=== PATIENT | male | born 1985 | race Caucasian/White ===

== ENCOUNTER 2018-09-29 00:14 | Emergency (ER) | payer OTHER ==
[2018-09-29 01:02] VITALS: BP 135/70; PULSE 88; TEMP 98.2; BMI 30.7
--- NOTE | 2018-09-29 01:55 | PDOC ---
History of Present Illness - General Chief Complaint: Head/Neck problem Stated Complaint: HEAD INJURY History Source: Patient Exam Limitations: No Limitations Past History - Past Medical History Allergies/Adverse Reactions: Allergies Allergy/AdvReac Type Severity Reaction Status Date / Time No Known Allergies Allergy Verified 09/29/18 00:57 Home Medications: Ambulatory Orders Lamotrigine [Lamictal] 200 mg PO HS 09/29/18 Quetiapine Fumarate [Seroquel -] 400 mg PO HS 09/29/18 - Suicide/Smoking/Psychosocial Hx Smoking History: Never smoked Have you smoked in the past 12 months: No Information on smoking cessation initiated: No Hx Alcohol Use: No Drug/Substance Use Hx: No *Physical Exam - Vital Signs Last Vital Signs Temp Pulse Resp BP Pulse Ox 98.2 F 88 16 135/70 97 09/29/18 00:14 09/29/18 00:14 09/29/18 00:14 09/29/18 00:14 09/29/18 00:14 *DC/Admit/Observation/Transfer Diagnosis at time of Disposition: Head injury Qualifiers: Encounter type: initial encounter Qualified Code(s): S09.90XA - Unspecified injury of head, initial encounter - Discharge Dispostion Disposition: HOME Condition at time of disposition: Fair Decision to Admit order: No - Referrals Referrals: Luke Tucker MD [Staff Physician] - - Patient Instructions Printed Discharge Instructions: DI for Closed Head Injury, DI for Concussion Additional Instructions: you were seen for the evaluation of your head and forearm injury. the studies show that you do not have a fracture, head bleed, and fracture of the arm. Please for the next few days have a progressive increase in mentation during recovery. do not watch tv for 5 days. please follow up with your primary medical doctor within 1 week after discharge for follow up care and management. please return to the emergency department if you have worsening symptoms or new concerning symptoms such as confusion, nausea, vomiting, and visual change. - Post Discharge Activity Forms/Work/School Notes: Back to Work
[2018-09-29] MEDS ORDERED: IBUPROFEN 600 MG TABLET (FP) PO ONE ×2 (02:03→02:07)
--- NOTE | 2018-09-29 03:02 | PDOC ---
Documentation entered by Connie Segovia SCRIBE, acting as scribe for Cordelia Willson MD. Cordelia Willson MD: This documentation has been prepared by the tatyanaibe, Connie Segovia SCRIBE, under my direction and personally reviewed by me in its entirety. I confirm that the documentation accurately reflects all work, treatment, procedures, and medical decision making performed by me. Attending Attestation - Resident Resident Name: Calvin Rapp - ED Attending Attestation I have performed the following: I have examined & evaluated the patient, The case was reviewed & discussed with the resident, I agree w/resident's findings & plan - HPI HPI: 09/29/18 02:01 The patient is a year old male with past medical history significant for bipolar disorder presents to the emergency department with a headache since 5: 00 pm today. The patient reports he was at the gym, working out. The patient reports he was laying down on the bench, when he sat down, he hit his head on a 40 lbs bar. The patient reports he felt lightheaded immediately after and felt a mental fog. The patient reports additional concern of an old injury to the arm. - Physicial Exam PE: 09/29/18 02:11 GENERAL: Awake, alert, and fully oriented, in no acute distress HEAD: no swelling of the occipital, no tenderness of the neck with palpation. No signs of trauma EYES: Pupils dilated bilaterally, reactive to light. sclera anicteric, conjunctiva clear ENT: Auricles normal inspection, hearing grossly normal, nares patent. Moist mucosa NECK: Normal ROM, supple, no lymphadenopathy, JVD, or masses LUNGS: Breath sounds equal, clear to auscultation bilaterally. No wheezes, and no crackles HEART: Regular rate and rhythm, normal S1 and S2, no murmurs, rubs or gallops ABDOMEN: Soft, nontender, normoactive bowel sounds. No guarding, no rebound. No masses EXTREMITIES: +old self inflicted cuts to the forearm, left arm he has resolving hematoma, tenderness over the forearm, able to supinate and pronate, good pulses, no swelling of the extremities, sensory motor intact. NEUROLOGICAL: Moves all extremities. Normal speech, normal gait SKIN: Warm, Dry, normal turgor, no rashes or lesions noted. - Medical Decision Making 09/29/18 03:01 Left forearm XRAY is normal. No fractures and no deformities and no soft tissue swelling 09/29/18 04:26 Pt's head and cspine CT scan are normal.
== END 2018-09-29 04:10 | disposition home or self-care (01) ==
LOC: JER 00:14
DX: S09.8XXA Other specified injuries of head, initial encounter (principal); W22.8XXA Striking against or struck by other objects, initial encounter; Y93.B3 Activity, free weights; Y92.39 Other specified sports and athletic area as the place of occurrence of the external cause; Y99.8 Other external cause status
CPT/HCPCS: 70450-TC; 72125-TC; 73090-TC-LT-FY; 99281-25

== ENCOUNTER 2018-11-30 19:10 | Emergency (ER) | payer OTHER ==
[2018-11-30 19:30] VITALS: BP 91/69; PULSE 89; TEMP 98.8; BMI 30.8
--- NOTE | 2018-11-30 20:05 | PDOC ---
History of Present Illness - General Chief Complaint: Pain, Acute Stated Complaint: SHOULDER PROBLEM Time Seen by Provider: 11/30/18 19:56 History Source: Patient Exam Limitations: Clinical Condition - History of Present Illness Initial Comments: 11/30/18 20:07 Patient with no significant past medical history present with complaint of 4 weeks history of persistent left shoulder pain from which lifting. Patient report taking a break from weight lifting 3 weeks ago and pain improved but started again after going back to weeks lifting. Patient reported taking Motrin for symptoms persist. Denies weakness to left upper extremity Timing/Duration: other (4 weeks) Past History - Past Medical History Allergies/Adverse Reactions: Allergies Allergy/AdvReac Type Severity Reaction Status Date / Time No Known Allergies Allergy Verified 09/29/18 00:57 Home Medications: Ambulatory Orders Lamotrigine [Lamictal] 200 mg PO HS 09/29/18 Quetiapine Fumarate [Seroquel -] 400 mg PO HS 09/29/18 Methocarbamol [Robaxin -] 500 mg PO BID PRN #14 tablet 11/30/18 Naproxen 500 mg PO BID PRN #20 tablet 11/30/18 - Suicide/Smoking/Psychosocial Hx Smoking History: Unknown if ever smoked Have you smoked in the past 12 months: No Information on smoking cessation initiated: No Hx Alcohol Use: No Drug/Substance Use Hx: No Review of Systems - Review of Systems Able to Perform ROS?: Yes Is the patient limited [place] proficient: No Constitutional: No: Loss of Appetite, Weakness HEENTM: No: Symptoms Reported Respiratory: No: Symptoms reported Cardiac (ROS): No: Symptoms Reported ABD/GI: No: Symptoms Reported Musculoskeletal: Yes: Symptoms Reported, See HPI, Joint Pain (left shoulder), Muscle Pain Neurological: No: Numbness, Paresthesia, Tingling, Weakness All Other Systems: Reviewed and Negative *Physical Exam - Vital Signs Last Vital Signs Temp Pulse Resp BP Pulse Ox 98.8 F 89 20 91/69 96 11/30/18 19:26 11/30/18 19:26 11/30/18 19:26 11/30/18 19:26 11/30/18 19:26 - Physical Exam Comments: 11/30/18 20:09 GENERAL: Well developed, well nourished. Awake and alert. No acute distress. CARDIOVASCULAR: Regular rate and rhythm. No murmurs, rubs, or gallops. PULMONARY: No evidence of respiratory distress. MUSCULOSKELETAL : mild tenderness over left AC joint and topical of left shoulder. Free range of motion of left shoulder and upper extremity. 5 out of 5 strength to left upper extremity.. No bony deformities SKIN: Warm and dry. Normal capillary refill. No bruising to left shoulder NEUROLOGICAL: Alert, awake, appropriate. No motor deficits in the lower extremities. Gait is normal without ataxia. PSYCHIATRIC: Cooperative. Good eye contact. Appropriate mood and affect. General Appearance: Yes: Nourished, Appropriately Dressed. No: Apparent Distress Medical Decision Making - Medical Decision Making 11/30/18 20:08 Patient with no significant past medical history present with complaint of 4 weeks history of persistent left shoulder pain from which lifting. Patient report taking a break from weight lifting 3 weeks ago and pain improved but started again after going back to weeks lifting. Patient reported taking Motrin for symptoms persist. Denies weakness to left upper extremity Exam significant for mild tenderness over left AC joint and topical of left shoulder. Free range of motion of left shoulder and upper extremity. 5 out of 5 strength to left upper extremity. Patient stable for discharge on naproxen when necessary for pain and Robaxin muscle relaxer with orthopedist follow-up *DC/Admit/Observation/Transfer Diagnosis at time of Disposition: Strain of left shoulder Qualifiers: Encounter type: initial encounter Qualified Code(s): S46.912A - Strain of unspecified muscle, fascia and tendon at shoulder and upper arm level, left arm , initial encounter - Discharge Dispostion Disposition: HOME Condition at time of disposition: Stable Decision to Admit order: No - Prescriptions Prescriptions: Methocarbamol [Robaxin -] 500 mg PO BID PRN #14 tablet PRN Reason: shoulder pain Naproxen 500 mg PO BID PRN #20 tablet PRN Reason: pain - Referrals Referrals: Maximo Messina DO [Staff Physician] - - Patient Instructions Printed Discharge Instructions: Shoulder Sprain Additional Instructions: Take medication as prescribed as needed for shoulder pain. Apply hot compresses to shoulder 2-3 times a day as needed for pain. Follow-up referred orthopedics for reassessment and possible MRI - Post Discharge Activity
== END 2018-11-30 20:16 | disposition home or self-care (01) ==
LOC: JERFT 19:10 → JER 19:10 → JERFT 20:16
DX: S46.812A Strain of other muscles, fascia and tendons at shoulder and upper arm level, left arm, initial encounter (principal); X50.3XXA Overexertion from repetitive movements, initial encounter; Y93.B3 Activity, free weights; Y92.89 Other specified places as the place of occurrence of the external cause; Y99.8 Other external cause status
CPT/HCPCS: 99281-25

== ENCOUNTER 2019-01-18 19:17 | Emergency (ER) | payer OTHER | END 2019-01-18 20:33 | disposition home or self-care (01) | LOC: JERFT 19:17 ==

== ENCOUNTER 2020-02-26 03:04 | Emergency (ER) | payer OTHER ==
--- NOTE | 2020-02-26 03:14 | PDOC ---
Attending Attestation - Resident Resident Name: ElisePrasanth gangrabiel - ED Attending Attestation I have performed the following: I have examined & evaluated the patient, The case was reviewed & discussed with the resident, I agree w/resident's findings & plan - HPI HPI: 02/26/20 03:51 see resident hpi - Physicial Exam PE: 02/26/20 03:52 see resident exam - Medical Decision Making 02/26/20 03:52 34-year-old male requesting COVID testing after possible exposure mild cough development Chest x-ray shows no acute pulmonary disease EKG is unremarkable Mild increase in expiratory phase Will DC with [facility] with outpatient primary care follow-up Discharge - Discharge Information Problems reviewed: Yes Clinical Impression/Diagnosis: Cough - Follow up/Referral - Patient Discharge Instructions - Post Discharge Activity
[2020-02-26 03:23] VITALS: PULSE 92; TEMP 98.9; BMI 32.3
--- OUTSIDE RECORDS SUMMARY | 2020-02-26 03:26 | XMS ---
:1985 Author Organization [facility] Support Name Relationship Address Phone UE Unavailable Unavailable Unavailable KESHA CARPENTER MOTHER [address] [place] [address] KESHA carpenter Unavailable Unavailable Unavailable [place], [place] Re-disclosure Warning The records that you are about to access may contain information from federally- assisted alcohol or drug abuse programs. If such information is present, then the following federally mandated warning applies: This information has been disclosed to you from records protected by federal confidentiality rules (42 CFR part 2). The federal rules prohibit you from making any further disclosure of this information unless further disclosure is expressly permitted by the written consent of the person to whom it pertains or as otherwise permitted by 42 CFR part 2. A general authorization for the release of medical or other information is NOT sufficient for this purpose. The Federal rules restrict any use of the information to criminally investigate or prosecute any alcohol or drug abuse patient.The records that you are about to access may contain highly sensitive health information, the redisclosure of which is protected by Article 27-F of the [facility] Public Health law. If you continue you may haveaccess to information: Regarding HIV / AIDS; Provided by facilities licensed or operated by the [facility] Office of Mental Health; or Provided by the [facility] Office for People With Developmental Disabilities. If such information is present, then the following [facility] mandated warning applies: This information has been disclosed to you from confidential records which are protected by state law. State law prohibits you from making any further disclosure of this information without the specific written consent of the person to whom it pertains, or as otherwise permitted by law. Any unauthorized further disclosure in violation of state law may result in a fine or correction sentence or both. A general authorization for the release of medical or other information is NOT sufficient authorization for further disclosure. Allergies and Adverse Reactions Type Description Substance Reaction Status Data Source(s ) Propensity to cats No known allergies sneeZING Active eCW 3 ([facility] adverse reactions (situation) Health Care) Propensity to cats No known allergies sneeZING Active eCW 3 ([facility] adverse reactions (situation) Health Care) Propensity to cats No known allergies sneeZING Active eCW 3 ([facility] adverse reactions (situation) Health Care) Encounters Encounter Providers Location Date Indications Data Source(s ) Outpatient [facility] 02/17/2019 eCW3 ([facility] on [facility] A28 12:00:00 AM Health are) EDT - 02/17/2019 12:00:00 AM EDT Outpatient [facility] 08/22/2018 eCW3 ([facility] on [facility] A28 12:00:00 AM Health are) EDT - 08/22/2018 12:00:00 AM EDT Outpatient [facility] 07/15/2018 eCW3 ([facility] on [facility] A28 12:00:00 AM Health are) EST - 07/15/2018 12:00:00 AM EST Unlisted 06/12/2018 NETSMART (Ment al evaluation and 05:00:00 AM Health As sociation management service [facility]) Unlisted 05/20/2018 NETSMART (Ment al evaluation and 05:00:00 AM Health As sociation management service [facility]) 06/06/2018 05:00:00 AM EST Immunizations Vaccine Date Status Description Data Source(s) MMR 11/28/2012 05:35:44 completed eCW3 ([facility] Care) meningococcal MCV4P completed eCW3 ([facility]) Medications Medication Brand Start Product Dose Route Administrative [facility] Indications Reaction Description Data Name Date Form Instructions Instructions Source(s) quetiapine SEROqu .0 Oral active NET SMART 300 MG Oral el 2019 Table (Mental Tablet 04:00: t Health [Seroquel] 00 AM Associat io EDT n of [facility]) vilazodone Viibry .0 Oral active NET SMART hydrochlori d 2019 Table (Mental de 10 MG 04:00: t Health Oral Tablet 00 AM Associa meet [Viibryd] EDT n of Philipp r) quetiapine SEROqu .0 Oral active NET SMART 400 MG Oral el 2020 Table (Mental Tablet 04:00: t Health [Seroquel] 00 AM Associat io EDT n of Philipp r) vilazodone Viibry .0 Oral active NET SMART hydrochlori d 2020 Table (Mental de 20 MG 04:00: t Health Oral Tablet 00 AM Associa meet [Viibryd] EDT n of [facility]) lamotrigine lamoTR .0 Oral active NE TSMART 100 MG Oral Igine 2020 Table (Menta l Tablet 04:00: t Health 00 AM Associatio EDT n of [facility]) vilazodone Viibry .0 Oral active NET SMART hydrochlori d 2020 Table (Mental de 20 MG 04:00: t Health Oral Tablet 00 AM Associa meet [Viibryd] EDT n of [facility]) quetiapine SEROqu .0 Oral active NET SMART 400 MG Oral el 2020 Table (Mental Tablet 04:00: t Health [Seroquel] 00 AM Associat io EDT n of [facility]) lamotrigine lamoTR .0 Oral active NE TSMART 50 MG Igine 2020 Table (Mental Disintegrat 04:00: t-ODT Healt h ing Oral 00 AM Associatio Tablet EDT n of hPilipp smith) quetiapine SEROqu .0 Oral active NET SMART 50 MG Oral el 2020 Table (Mental Tablet 04:00: t Health [Seroquel] 00 AM Associat io EDT n of Philipp r) vilazodone Viibry .0 Oral active NET SMART hydrochlori d 2020 Table (Mental de 20 MG 04:00: t Health Oral Tablet 00 AM Associa meet [Viibryd] EDT n of [facility]) quetiapine SEROqu .0 Oral active NET SMART 400 MG Oral el 2020 Table (Mental Tablet 04:00: t Health [Seroquel] 00 AM Associat io EDT n of [facility]) quetiapine SEROqu .0 Oral active NET SMART 400 MG Oral el 2020 Table (Mental Tablet 04:00: t Health [Seroquel] 00 AM Associat io EDT n of Philipp r) vilazodone Viibry .0 Oral active NET SMART hydrochlori d 2020 Table (Mental de 20 MG 04:00: t Health Oral Tablet 00 AM Associa meet [Viibryd] EDT n of [facility] r) vilazodone Viibry .0 Oral active NET SMART hydrochlori d 2020 Table (Mental de 20 MG 04:00: t Health Oral Tablet 00 AM Associa meet [Viibryd] EDT n of Philipp r) quetiapine SEROqu .0 Oral active NET SMART 400 MG Oral el 2020 Table (Mental Tablet 04:00: t Health [Seroquel] 00 AM Associat io EDT n of [facility] r) quetiapine SEROqu .0 Oral active NET SMART 400 MG Oral el 2020 Table (Mental Tablet 04:00: t Health [Seroquel] 00 AM Associat io EDT n of [facility]) vilazodone Viibry .0 Oral active NET SMART hydrochlori d 2020 Table (Mental de 20 MG 04:00: t Health Oral Tablet 00 AM Associa meet [Viibryd] EDT n of [facility]) lamotrigine lamoTR .0 Oral active NE TSMART 50 MG Igine 2019 Table (Mental Disintegrat 04:00: t-ODT Healt h ing Oral 00 AM Associatio Tablet EDT n of Philipp r) vilazodone Viibry .0 Oral active NET SMART hydrochlori d 2020 Table (Mental de 20 MG 04:00: t Health Oral Tablet 00 AM Associa meet [Viibryd] EDT n of Philipp r) quetiapine SEROqu .0 Oral active NET SMART 400 MG Oral el 2020 Table (Mental Tablet 04:00: t Health [Seroquel] 00 AM Associat io EDT n of [place] [facility]) vilazodone Viibry .0 Oral active NET SMART hydrochlori d 2020 Table (Mental de 20 MG 04:00: t Health Oral Tablet 00 AM Associa meet [Viibryd] EDT n of Philipp r) quetiapine SEROqu .0 Oral active NET SMART 400 MG Oral el 2020 Table (Mental Tablet 04:00: t Health [Seroquel] 00 AM Associat io EDT n of [facility] r) vilazodone Viibry .0 Oral active NET SMART hydrochlori d 2020 Table (Mental de 20 MG 04:00: t Health Oral Tablet 00 AM Associa meet [Viibryd] EDT n of Philipp r) quetiapine SEROqu .0 Oral active NET SMART 400 MG Oral el 2020 Table (Mental Tablet 04:00: t Health [Seroquel] 00 AM Associat io EDT n of [facility] r) quetiapine SEROqu .0 Oral active NET SMART 400 MG Oral el 2020 Table (Mental Tablet 04:00: t Health [Seroquel] 00 AM Associat io EDT n of [facility] r) vilazodone Viibry .0 Oral active NET SMART hydrochlori d 2020 Table (Mental de 20 MG 04:00: t Health Oral Tablet 00 AM Associa meet [Viibryd] EDT n of [facility] r) quetiapine SEROqu .0 Oral active NET SMART 400 MG Oral el 2020 Table (Mental Tablet 04:00: t Health [Seroquel] 00 AM Associat io EDT n of [facility] r) Escitalopra Lexapr .0 Oral active NE TSMART m 10 MG o 2020 Table (Mental Oral Tablet 04:00: t Health [Lexapro] 00 AM Associati o EDT n of [facility] r) vilazodone Viibry 1.0 Oral active NET SMART hydrochlori d 2020 Table (Mental de 10 MG 04:00: t Health Oral Tablet 00 AM Associa meet [Viibryd] EDT n of [facility] r) quetiapine SEROqu .0 Oral active NET SMART 400 MG Oral el 2020 Table (Mental Tablet 04:00: t Health [Seroquel] 00 AM Associat io EDT n of [facility] r) Escitalopra Lexapr .0 Oral active NE TSMART m 5 MG Oral o 2020 Table (Mental Tablet 04:00: t Health [Lexapro] 00 AM Associati o EDT n of Philipp r) quetiapine SEROqu .0 Oral active NET SMART 400 MG Oral el 2020 Table (Mental Tablet 04:00: t Health [Seroquel] 00 AM Associat io EDT n of [place] [facility]) vilazodone Viibry .0 Oral active NET SMART hydrochlori d 2020 Table (Mental de 20 MG 04:00: t Health Oral Tablet 00 AM Associa meet [Viibryd] EDT n of [place] [facility]) vilazodone Viibry .0 Oral active NET SMART hydrochlori d 2020 Table (Mental de 20 MG 04:00: t Health Oral Tablet 00 AM Associa meet [Viibryd] EDT n of [place] sm[facility]) quetiapine SEROqu .0 Oral active NET SMART 400 MG Oral el 2020 Table (Mental Tablet 04:00: t Health [Seroquel] 00 AM Associat io EDT n of [facility] r) vilazodone Viibry .0 Oral active NET SMART hydrochlori d 2020 Table (Mental de 20 MG 04:00: t Health Oral Tablet 00 AM Associa meet [Viibryd] EDT n of Philipp r) quetiapine SEROqu .0 Oral active NET SMART 400 MG Oral el 2020 Table (Mental Tablet 04:00: t Health [Seroquel] 00 AM Associat io EDT n of [facility] r) vilazodone Viibry .0 Oral active NET SMART hydrochlori d 2020 Table (Mental de 20 MG 04:00: t Health Oral Tablet 00 AM Associa meet [Viibryd] EDT n of [place] r) quetiapine SEROqu .0 Oral active NET SMART 400 MG Oral el 2020 Table (Mental Tablet 04:00: t Health [Seroquel] 00 AM Associat io EDT n of [place] [facility]) vilazodone Viibry .0 Oral active NET SMART hydrochlori d 2020 Table (Mental de 20 MG 04:00: t Health Oral Tablet 00 AM Associa meet [Viibryd] EDT n of [place] r) quetiapine SEROqu .0 Oral active NET SMART 400 MG Oral el 2020 Table (Mental Tablet 04:00: t Health [Seroquel] 00 AM Associat io EDT n of [place] r) quetiapine SEROqu .0 Oral active NET SMART 400 MG Oral el 2020 Table (Mental Tablet 04:00: t Health [Seroquel] 00 AM Associat io EDT n of [place] r) vilazodone Viibry .0 Oral active NET SMART hydrochlori d 2020 Table (Mental de 20 MG 04:00: t Health Oral Tablet 00 AM Associa meet EDT n of [place] r) vilazodone Viibry .0 Oral active NET SMART hydrochlori d 2020 Table (Mental de 20 MG 04:00: t Health Oral Tablet 00 AM Associa meet EDT n of [place] r) vilazodone Viibry .0 Oral active NET SMART hydrochlori d 2020 Table (Mental de 10 MG 05:00: t Health Oral Tablet 00 AM Associa meet [Viibryd] EST n of Philipp r) quetiapine SEROqu .0 Oral active NET SMART 300 MG Oral el 2020 Table (Mental Tablet 05:00: t Health [Seroquel] 00 AM Associat io EST n of [place] r) quetiapine QUEtia .0 Oral active NET SMART 400 MG Oral pine 2020 Table (Mental Tablet Fumara 05:00: t Health te 00 AM Associatio EST n of Philipp r) quetiapine SEROqu .0 Oral active NET SMART 200 MG Oral el 2020 Table (Mental Tablet 05:00: t Health [Seroquel] 00 AM Associat io EST n of [facility] r) lamotrigine lamoTR .0 Oral active NE TSMART 50 MG Igine 2019 Table (Mental Disintegrat 05:00: t-ODT Healt h ing Oral 00 AM Associatio Tablet EST n of [facility] r) quetiapine SEROqu .0 Oral active NET SMART 200 MG Oral el 2019 Table (Mental Tablet 05:00: t Health [Seroquel] 00 AM Associat io EST n of [place] r) quetiapine SEROqu .0 Oral active NET SMART 100 MG Oral el 2019 Table (Mental Tablet 05:00: t Health [Seroquel] 00 AM Associat io EST n of Philipp r) 24 HR lamoTR .0 Oral active NETSMART lamotrigine Igine 2019 Table (Menta l 50 MG 05:00: t Health Extended 00 AM Associatio Release EST n of Oral Tablet Sondra adkins r) Zoloft 50 UNK active Zoloft 50 mg eCW3 mg ([facility] Care) Lurasidone Latuda suspend Latuda 40 MG eCW3 Hydrochlori 40 MG ed ([place] de 40 MG [place] Oral Tablet Health [Latuda] Care) Latuda 40 MG quetiapine Seroqu 1.0 active Seroquel 4 00 eCW3 400 MG Oral el 400 {tabl MG ([facility] Tablet MG et_at [place] [Seroquel] _[facility] Seroquel nae} Care) 400 MG lamotrigine Lamotr active Lamotrigi ne eCW3 200 MG Oral igine 200 MG ([facility] Tablet 200 MG [place] Lamotrigine Health 200 MG Care) Lurasidone Latuda suspend Latuda 40 MG eCW3 Hydrochlori 40 MG ed ([place] de 40 MG [place] Oral Tablet Health [Latuda] Care) Latuda 40 MG quetiapine Seroqu 1.0 active Seroquel 4 00 eCW3 400 MG Oral el 400 {tabl MG ([place] Tablet MG et_at [place] [Seroquel] _[facility] Seroquel nae} Care) 400 MG ZOLOFT 50 UNK active ZOLOFT 50 mg eCW3 mg ([facility] Care) vilazodone Viibry 1.0 active Viibryd 20 eCW3 hydrochlori d 20 {tabl MG ([place] de 20 MG MG et_wi [place] Oral Tablet th_[facility] [Viibryd] od} Care) Viibryd 20 MG lamotrigine Lamotr active Lamotrigi ne eCW3 200 MG Oral igine 200 MG ([facility] Tablet 200 MG [place] Lamotrigine Health 200 MG Care) quetiapine Seroqu 1.0 active Seroquel 4 00 eCW3 400 MG Oral el 400 {tabl MG ([place] Tablet MG et_at [place] [Seroquel] _[facility] Seroquel nae} Care) 400 MG Insurance Providers Payer name Policy type Policy ID Covered Covered republican's Policy P subhash / Coverage republican ID relationship to [place] Inf ormation type [place] [id number] [place] [id number] HMO Problems, Conditions, and Diagnoses Code Display Name Description Problem Type Effective Data Sour ce(s) Dates [id number] Alcohol abuse Alcohol abuse Complaint 02/05/2020 NETSMART 09:25:00 PM ([facility]ental [facility] EDT [facility]) N52.9 Erectile Erectile Problem 11/03/2019 eCW3 ([place] dysfunction, dysfunction, 12:00:00 AM [facility] unspecified unspecified EDT Care) erectile erectile dysfunction type dysfunction type F48.8 Brain fog Brain fog Problem 10/16/2019 eCW3 ([place] 12:00:00 AM [facility] EDT Care) E55.9 Vitamin D Vitamin D Problem 08/11/2019 eCW3 ([place] deficiency deficiency 12:00:00 AM [facility] EDT Care) E78.2 Mixed Mixed Problem 08/11/2019 eCW3 ([place] hyperlipidemia hyperlipidemia 12:00:00 AM [facility] EDT Care) 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 08:35:00 PM ([facility] disorder disorder EDT [facility]) F19.20 Substance Substance Problem 07/15/2018 eCW3 ([place] dependence dependence 12:00:00 AM [facility] EST Care) Z86.59 History of History of Problem 07/15/2018 eCW3 ([place] psychiatric psychiatric 12:00:00 AM [facility] disorder disorder EST Care) F19.20 Substance Substance Problem 07/15/2018 eCW3 ([place] dependence dependence 12:00:00 AM [facility] EST Care) Z86.59 History of History of Problem 07/15/2018 eCW3 ([place] psychiatric psychiatric 12:00:00 [facility] disorder EST Care) F31.60 Bipolar affective Bipolar affective Problem 10/19/2017 eCW3 ([place] disorder, current disorder, current 12:00:00 AM [facility] episode mixed, episode mixed, EDT Care) current episode current episode severity severity unspecified unspecified F31.60 Bipolar affective Bipolar affective Problem 10/19/2017 eCW3 ([place] disorder, current disorder, current 12:00:00 AM [facility] episode mixed, episode mixed, EDT Care) current episode current episode severity severity unspecified unspecified 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 06/08/2014 eCW3 ([facility] son behavior 12:00:00 AM [facility] EST [facility]) V70.0 Annual health Annual physical Problem 06/08/2014 eCW3 ( [place] maintenance exam 12:00:00 AM [facility] examination EST [facility]) 296.30 Recurrent major Depression, major, Problem 06/08/2014 e CW3 ([place] depression recurrent 12:00:00 AM [facility]) V70.0 Annual health Annual physical Problem 06/08/2014 eCW3 ( [place] maintenance exam 12:00:00 AM [facility] examination EST Care) 296.30 Recurrent major Depression, major, Problem 06/08/2014 e CW3 ([place] depression recurrent 12:00:00 AM [facility]) 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 06/08/2014 eCW3 ([facility] son behavior 12:00:00 AM [facility]) 784.0 Headache Headache Problem eCW3 ([facility]) 784.0 Headache Headache Problem eCW3 ([facility]) Social History Code Duration Value Status Description Data Source(s ) Smoking 01/01/2020 12:00:00 Never Smoker completed Never Smoker e CW3 ([facility]) Smoking 08/30/2018 12:00:00 Never Smoker completed Never Smoker e CW3 ([facility]) Smoking 07/15/2018 12:00:00 Never Smoker completed Never Smoker e CW3 ([facility]) Never Smoker completed Never Smoker eCW3 ([facility]) Never Smoker completed Never Smoker eCW3 ([facility]) Never Smoker completed Never Smoker eCW3 ([facility]) Vital Signs ID Date Data Source UNK Name Value Range Interpretation Code Description Data Source(s) Diastolic blood 68 mm[Hg] 68 mm[Hg] eCW3 ([facility]) Systolic blood 111 mm[Hg] 111 mm[Hg] eCW3 ([facility]) Body temperature 98.2 [degF] 98.2 [degF] eCW3 ( [facility]) Heart rate 20 /min 20 /min eCW3 ([facility]) Body mass index 28.44 kg/m2 28.44 kg/m2 eCW3 ([facility] (BMI) [Ratio] [facility]) Body weight 194 [lb_av] 194 [lb_av] eCW3 ([facility]) Body height 69.25 [in_i] 69.25 [in_i] eCW3 ([facility]) Diastolic blood 70 mm[Hg] 70 mm[Hg] eCW3 ([facility]) Systolic blood 124 mm[Hg] 124 mm[Hg] eCW3 ([facility]) Body temperature 98.0 [degF] 98.0 [degF] eCW3 ( [facility]) Heart rate 20 /min 20 /min eCW3 ([facility]) Body mass index 29.91 kg/m2 29.91 kg/m2 eCW3 ([facility] (BMI) [Ratio] [facility]) Body weight 204 [lb_av] 204 [lb_av] eCW3 ([facility]) Body height 69.25 [in_i] 69.25 [in_i] eCW3 ([facility]) Diastolic blood 70 mm[Hg] 70 mm[Hg] eCW3 ([facility]) Systolic blood 104 mm[Hg] 104 mm[Hg] eCW3 ([facility]) Body temperature 98.5 [degF] 98.5 [degF] eCW3 ( [facility]) Body mass index 30.05 kg/m2 30.05 kg/m2 eCW3 ([facility] (BMI) [Ratio] [facility]) Body weight 205 [lb_av] 205 [lb_av] eCW3 ([facility]) Body height 69.25 [in_i] 69.25 [in_i] eCW3 ([facility]) Patient Treatment Plan of Care Planned Activity Planned Date Details Description Data Source (s) quetiapine 400 MG Oral eCW3 ([facility] [Seroquel] Care) lamotrigine 200 MG Oral eCW3 ([facility] Care) Zoloft 50 mg eCW3 ([facility])
--- NOTE | 2020-02-26 03:32 | PDOC ---
History of Present Illness - General Chief Complaint: Shortness of Breath Stated Complaint: SOB Time Seen by Provider: 02/26/20 03:12 - History of Present Illness Initial Comments: HPI: 02/26/20 03:26 34 yo M PMH bipolar disorder on Seroquel and Viibryd, presenting from home with SOB. Notes that he began to feel SOB earlier today, associated with mild chest tightness but without chest pain, no correlation with activity. Also complains of cough. Checked his home pulse ox which stated 93%, making him concerned about coming in. He notes that he had a sexual encounter 2 weeks ago and is worried that he may have gotten COVID. Requested COVID swab 3 times during the interview. Denies any other complains. ROS: GENERAL/CONSTITUTIONAL: denies fever, chills, diaphoresis, generalized weakness, malaise, loss of appetite, weight change HEAD, EYES, EARS, NOSE AND THROAT: denies rhinorrhea, nasal congestion, throat pain, throat swelling, difficulty swallowing, mouth swelling, ear pain, eye pain, visual changes NEUROLOGIC: denies headache, focal weakness, dizziness, unsteady gait, seizure, mental status changes, bladder or bowel incontinence CARDIOVASCULAR: denies chest pain, syncope, palpitations, irregular heart rate, lightheadedness, peripheral edema RESPIRATORY: endorses mild shortness of breath and cough. Denies dyspnea with exertion, orthopnea, wheezing, stridor, hemoptysis GASTROINTESTINAL: denies abdominal pain, abdominal distension, nausea, vomiting, diarrhea, constipation, melena, hematochezia GENITOURINARY: denies dysuria, frequency, urgency, hesitancy, hematuria, flank pain, genital pain MUSCULOSKELETAL: denies myalgia, arthralgia, joint swelling, back pain, neck pain SKIN: denies rash, itching, pallor HEMATOLOGIC/IMMUNOLOGIC: denies easy bleeding, easy bruising, lymphadenopathy, frequent infections ENDOCRINE: denies unexplained weight gain, unexplained weight loss, heat intolerance, cold intolerance PSYCHIATRIC: endorses anxiety. Denies depression, suicidal or homicidal petra ation, hallucinations PE: Gen: well-developed, well-nourished, NAD Neuro: AAOX4, CN II-XII grossly intact HEENT: atraumatic, normocephalic Neck: trachea midline, supple CV: regular rate in the 90s, regular rhythm, no murmurs, rubs, or gallops Pulm: CTA b/l, no wheezing Abd: soft, non-distended, non-tender MSK: full ROM, intact pulses Extr: no edema, no deformities Skin: warm, dry MDM: - EKG, CXR - COVID swab - albuterol MDI 2 puffs - reassess 02/26/20 03:34 EKG normal sinus at 86 bpm, AR 150, QRS 78, QTc 392. RSR' pattern in III and AVF. Otherwise unremarkable. Will f/u CXR, reassess after albuterol. 02/26/20 04:12 CXR without acute abnormality. Will dc with albuterol inhaler, close follow up outpatient. Past History - Medical History Allergies/Adverse Reactions: Allergies Allergy/AdvReac Type Severity Reaction Status Date / Time No Known Allergies Allergy Verified 02/26/20 03:19 Home Medications: Ambulatory Orders Lamotrigine [Lamictal] 200 mg PO HS 09/29/18 Quetiapine Fumarate [Seroquel -] 400 mg PO HS 09/29/18 Vilazodone Hydrochloride [Viibryd] 10 mg PO DAILY 01/18/19 COPD: No - Psycho-Social/Smoking History Smoking History: Never smoked Have you smoked in the past 12 months: No Information on smoking cessation initiated: No - Substance Abuse Hx (Audit-C & DAST Scrn) How often the patient has a drink containing alcohol: Never Score: In Men: 4 or > Positive; In Women: 3 or > Positive: 0 Screen Result (Pos requires Nsg. Audit-10AR): Negative In the last yr the pt used illegal drug/Rx for NonMed reason: No Score: Yes response is considered Positive: 0 Screen Result (Positive result requires Nsg. DAST-10): Negative *Physical Exam - Vital Signs Last Vital Signs Temp Pulse Resp BP Pulse Ox 98.9 F 92 H 20 147/102 H 99 02/26/20 03:19 02/26/20 03:19 02/26/20 03:19 02/26/20 03:19 02/26/20 03:19 ED Treatment Course - RADIOLOGY Radiology Studies Ordered: Category Date Time Status CHEST PA & LAT [RAD] Stat Radiology 02/26/20 03:25 Ordered Discharge - Discharge Information Problems reviewed: Yes Clinical Impression/Diagnosis: Cough, SOB (shortness of breath) Condition: Improved Disposition: HOME - Admission No - Follow up/Referral - Patient Discharge Instructions Patient Printed Discharge Instructions: DI for Cough -- Adult Additional Instructions: You were seen with cough and shortness of breath. Your physical exam was unremarkable, and your EKG and chest X ray did not have any concerning findings. Please take your albuterol puffs as needed. Follow up with your primary care doctor within one week. Return to the ER if you develop new or worsening symptoms. - Post Discharge Activity
[2020-02-26] MEDS ORDERED: ALBUTEROL SO4 HFA INHALER IH ONE ×2 (03:43→04:02)
[2020-02-26 04:26] VITALS: BP 140/90
--- NOTE | 2020-02-26 14:04 | EKG ---
Test Reason : Blood Pressure : / mmHG Vent. Rate : 086 BPM Atrial Rate : 086 BPM P-R Int : 150 ms QRS Dur : 078 ms QT Int : 328 ms P-R-T Axes : 050 037 029 degrees QTc Int : 392 ms NORMAL SINUS RHYTHM NORMAL ECG NO PREVIOUS ECGS AVAILABLE Confirmed by BHAKTI MONCADA MD ([id number]) on 02/26/2020 2:04:16 PM Referred By: Confirmed By:BHAKTI MONCADA MD
== END 2020-02-26 04:20 | disposition home or self-care (01) ==
LOC: JER 03:04
DX: R06.02 Shortness of breath (principal); R05 Cough
CPT/HCPCS: 71046-TC-FY; 93005; 93010; 99285-25; U0003

== ENCOUNTER 2021-01-24 23:15 | Emergency (ER) | payer OTHER ==
[2021-01-24 23:38] VITALS: BP 154/90; PULSE 124; TEMP 98.3; BMI 34.4
[2021-01-24] MEDS ORDERED: CYCLOBENZAPRINE HCL 10 MG TABLET (FP) PO ONE (23:41)
[2021-01-24] MEDS ORDERED: CYCLOBENZAPRINE HCL 10 MG TABLET (FP) ONE (23:41)
[2021-01-24] MEDS ORDERED: KETOROLAC TROMETHAMINE 60 MG/2 ML VIAL ONE (23:41)
[2021-01-24] MEDS ORDERED: KETOROLAC TROMETHAMINE 60 MG/2 ML VIAL IM ONE (23:41)
== END 2021-01-24 23:58 | disposition home or self-care (01) ==
LOC: FER 23:15
DX: M54.12 Radiculopathy, cervical region (principal)
CPT/HCPCS: 93005; 99283-25

== ENCOUNTER 2022-10-30 03:40 | Emergency (ER) | payer OTHER ==
[2022-10-30 03:55] VITALS: BP 133/84; PULSE 97; RESP 18; TEMP 99; BMI 36.6
[2022-10-30] MEDS ORDERED: FAMOTIDINE 10 MG TABLET PO ONE (04:04)
[2022-10-30] MEDS ORDERED: FAMOTIDINE 20 MG TABLET ONE (04:06)
[2022-10-30] MEDS ORDERED: MAG HYDROX/AL HYDROX/SIMETH 30 ML UNIT-DOSE CUP ONE (04:06)
[2022-10-30] MEDS ORDERED: MAG HYDROX/AL HYDROX/SIMETH -MYLANTA- ORAL SUSPENSION PO ONE (04:07)
== END 2022-10-30 04:14 | disposition home or self-care (01) ==
LOC: FER 03:40
DX: R10.30 Lower abdominal pain, unspecified (principal)
CPT/HCPCS: 99283-25